=== PATIENT | female | born 1940 | race Caucasian/White ===

== ENCOUNTER 2019-07-02 13:54 | Emergency (ER) | payer MEDICARE, OTHER ==
[~2019-07-02] VITALS: Ht 162.6 cm; Wt 77.7 kg
[2019-07-02] MEDS ORDERED: RESTORIL30 M1 PO (14:36)
[2019-07-02] MEDS ORDERED: OMEPRAZOLE40 MG PO (14:37)
[2019-07-02] MEDS ORDERED: COLACE100 M1 PO (14:37)
[2019-07-02] MEDS ORDERED: CELEXA 20MG20 MG/TA1 PO (14:38)
[2019-07-02] MEDS ORDERED: MULTIVITAMIN1 SGL PO (14:38)
[2019-07-02] MEDS ORDERED: SIMVASTATIN20 M1 PO (14:38)
[2019-07-02] MEDS ORDERED: MIRALAX17 GM PO (14:39)
[2019-07-02] MEDS ORDERED: LEVO-T25 MCG PO (14:39)
[2019-07-02] MEDS ORDERED: SINGULAIR PO (14:39)
[2019-07-02] MEDS ORDERED: FLONASE ALLERG9.9 ML NAS (14:40)
[2019-07-02] MEDS ORDERED: LASIX20 M1 PO (14:40)
[2019-07-02] MEDS ORDERED: FEOSOL325 MG PO (14:41)
[2019-07-02] MEDS ORDERED: CYCLOBENZAPRINE10 M1 PO (14:41)
[2019-07-02] MEDS ORDERED: CARVEDILOL25 MG PO (14:41)
[2019-07-02] MEDS ORDERED: IPRATROPIUM BROM3 M1 IH (14:42)
[2019-07-02 16:25] VITALS: BP 128/71
== END 2019-07-02 16:25 | disposition home or self-care (01) ==
LOC: ED 13:54
DX: S01.01XA Laceration without foreign body of scalp, initial encounter (principal); S90.31XA Contusion of right foot, initial encounter; S40.011A Contusion of right shoulder, initial encounter; S80.11XA Contusion of right lower leg, initial encounter; Z79.51 Long term (current) use of inhaled steroids; W06.XXXA Fall from bed, initial encounter; Y92.009 Unspecified place in unspecified non-institutional (private) residence as the place of occurrence of the external cause

== ENCOUNTER → 2020-03-01 | Outpatient (CLI) | payer MEDICARE ==
[~2020-03-01] MED LIST: CARVEDILOL25 MG PO; CELEXA 20MG20 MG/TA1 PO; COLACE100 M1 PO; CYCLOBENZAPRINE10 M1 PO; FEOSOL325 MG PO; FLONASE ALLERG9.9 ML NAS; IPRATROPIUM BROM3 M1 IH; LASIX20 M1 PO; LEVO-T25 MCG PO; MIRALAX17 GM PO; MULTIVITAMIN1 SGL PO; OMEPRAZOLE40 MG PO; RESTORIL30 M1 PO; SIMVASTATIN20 M1 PO; SINGULAIR PO
== END ==
LOC: MAMMO 02-28 10:45
DX: Z12.31 Encounter for screening mammogram for malignant neoplasm of breast (principal); N63.20 Unspecified lump in the left breast, unspecified quadrant; Z95.0 Presence of cardiac pacemaker

== ENCOUNTER → 2020-03-08 | Outpatient (CLI) | payer MEDICARE | LOC: MAMMO 10:26 | DX: N64.9 Disorder of breast, unspecified (principal) ==

== ENCOUNTER → 2020-07-09 | Outpatient (CLI) | payer MEDICARE, OTHER | LOC: RAD 12:50 | DX: H53.9 Unspecified visual disturbance (principal) | CPT/HCPCS: Q9967 ==

== ENCOUNTER → 2021-01-18 | Outpatient (CLI) | payer MEDICARE, OTHER | LOC: RAD 10:22 | DX: H53.9 Unspecified visual disturbance (principal); H05.229 Edema of unspecified orbit; R22.0 Localized swelling, mass and lump, head ==

== ENCOUNTER 2023-03-05 09:52 | Inpatient (IN) | payer MEDICARE, OTHER ==
[~2023-03-05] VITALS: Ht 162.6 cm; Wt 75.0 kg
[~2023-03-05 09:52] MED LIST changes: +AZELASTINE137 MCG/Ac NS; +AZITHROMYCIN 250MGPK PO; +BENZONATATE100 M2 PO; +DULOXETINE30 MG PO; +MACROBID 100 M100 MG PO
[2023-03-05 10:51] LABS: BASO # 0.02 K/mm3 (0.02-0.10); EOS # 0.04 K/mm3 (0.04-0.40); EOS % 0.3 % (1.0-5.0); HEMATOCRIT 35.1 % (37.0-47.0); LYMPH# 1.93 K/mm3 (1.50-4.00); MEAN CELL VOLUME 93 fl (78-100); MEAN CORPUSCULAR HEMOGLOBIN 29 pg (27-31); MEAN CORPUSCULAR HGB CONC 31 g/dL (33-37); MEAN PLATELET VOLUME 9.7 fl (7.4-10.4); MONO # 0.57 K/mm3 (0.20-0.80); NEU # 12.18 K/mm3 (1.40-6.50); PLATELET COUNT 144 K/mm3 (130-400); RED BLOOD COUNT 3.78 M/mm3 (4.10-5.30); RED CELL DISTRIBUTION WIDTH 13.9 % (11.5-14.5); WHITE BLOOD COUNT 14.8 K/mm3 (4.8-10.8)
[2023-03-05 11:06] LABS: ALBUMIN 3.7 g/dL (3.4-4.8)
[2023-03-05 11:07] LABS: CALCIUM 9.9 mg/dL (8.3-10.5)
[2023-03-05 11:08] LABS: TOTAL PROTEIN 6.6 g/dL (6.2-8.1)
[2023-03-05 11:10] LABS: TOTAL BILIRUBIN 0.3 mg/dL (0.2-1.2)
[2023-03-05 14:34] LABS: PH-URINE 5.5 (5.0 - 8.0); URINE APPEARANCE CLOUDY (CLEAR); URINE BILIRUBIN NEGATIVE (NEGATIVE); URINE BLOOD 1+ (NEGATIVE); URINE COLOR YELLOW (YELLOW); URINE GLUCOSE NEGATIVE (NEGATIVE); URINE KETONE 1+ (NEGATIVE); URINE LEUKOCYTE ESTERASE 2+ (NEGATIVE); URINE NITRATE NEGATIVE (NEGATIVE); URINE PROTEIN(semi-quant) TRACE (NEGATIVE)
[2023-03-05 14:35] LABS: URINE WBC 16-30 /hpf (0-3)
[2023-03-05 17:07] VITALS: BP 146/78
[2023-03-05 21:42] VITALS: BP 122/73
[2023-03-06 02:45] VITALS: BP 139/70
[2023-03-06 05:28] VITALS: BP 114/67
[2023-03-06 09:04] LABS: BASO # 0.01 K/mm3 (0.02-0.10); EOS # 0.12 K/mm3 (0.04-0.40); EOS % 1.2 % (1.0-5.0); HEMATOCRIT 36.8 % (37.0-47.0); HEMOGLOBIN 11.1 g/dL (12.5-16.0); LYMPH# 1.52 K/mm3 (1.50-4.00); MEAN CELL VOLUME 96 fl (78-100); MEAN CORPUSCULAR HEMOGLOBIN 29 pg (27-31); MEAN CORPUSCULAR HGB CONC 30 g/dL (33-37); MEAN PLATELET VOLUME 9.9 fl (7.4-10.4); MONO # 0.51 K/mm3 (0.20-0.80); NEU # 7.42 K/mm3 (1.40-6.50); PLATELET COUNT 146 K/mm3 (130-400); RED BLOOD COUNT 3.82 M/mm3 (4.10-5.30); WHITE BLOOD COUNT 9.6 K/mm3 (4.8-10.8)
[2023-03-06 09:10] LABS: CALCIUM 9.6 mg/dL (8.3-10.5)
[2023-03-06 10:21] VITALS: BP 161/72
[2023-03-06 13:59] VITALS: BP 130/67
[2023-03-06] MEDS ORDERED: IPRATROPIUM BROM3 M1 IH (14:26)
[2023-03-06] MEDS ORDERED: BENADRYL PO (14:27)
[2023-03-06] MEDS ORDERED: COLACE100 M1 PO (14:28)
[2023-03-06] MEDS ORDERED: FERROUS SULFAT325 M4 PO (14:29)
[2023-03-06] MEDS ORDERED: CYMBALTA30 M1 PO (14:29)
[2023-03-06] MEDS ORDERED: SINGULAIR PO (14:30)
[2023-03-06] MEDS ORDERED: SYNTHROID25 MCG PO (14:30)
[2023-03-06] MEDS ORDERED: OMEPRAZOLE40 MG PO ×2 (14:31)
[2023-03-06] MEDS ORDERED: MIRALAX17 GM PO (14:31)
[2023-03-06] MEDS ORDERED: POTASSIUM CHLO10 ME7 PO (14:32)
[2023-03-06 18:06] VITALS: BP 128/71
[2023-03-06 22:30] VITALS: BP 129/75
[2023-03-07 02:17] VITALS: BP 143/72
[2023-03-07 05:54] VITALS: BP 137/72
[2023-03-07 06:58] LABS: CALCIUM 9.2 mg/dL (8.3-10.5)
[2023-03-07 09:57] VITALS: BP 128/68
[2023-03-07 13:26] VITALS: BP 136/64
[2023-03-07 17:11] VITALS: BP 138/70
[2023-03-07 21:47] VITALS: BP 129/67
[2023-03-08 01:45] VITALS: BP 149/70
[2023-03-08 05:34] VITALS: BP 138/70
[2023-03-08 07:05] LABS: CALCIUM 8.7 mg/dL (8.3-10.5)
[2023-03-08 09:57] VITALS: BP 107/51
[2023-03-08 14:05] VITALS: BP 124/63
[2023-03-08 17:09] VITALS: BP 113/63
[2023-03-08 21:37] VITALS: BP 116/59
[2023-03-09 01:44] VITALS: BP 133/72
[2023-03-09 06:04] VITALS: BP 153/75
[2023-03-09 09:09] VITALS: BP 120/64
[2023-03-09 09:10] LABS: CALCIUM 8.7 mg/dL (8.3-10.5)
[2023-03-09] MEDS ORDERED: MACROBID 100 M100 MG PO (12:28)
[2023-03-09 13:42] VITALS: BP 118/69
== END 2023-03-09 13:43 | disposition home or self-care (01) | DRG 690 ==
LOC: ED 09:52 → MED/SURG 15:08
PROVIDERS: Physician Assistant; ADMIT Family Medicine
DX: N39.0 Urinary tract infection, site not specified (principal); I13.0 Hypertensive heart and chronic kidney disease with heart failure and stage 1 through stage 4 chronic kidney disease, or unspecified chronic kidney disease; I50.9 Heart failure, unspecified; N18.9 Chronic kidney disease, unspecified; A08.4 Viral intestinal infection, unspecified; K21.9 Gastro-esophageal reflux disease without esophagitis; E78.5 Hyperlipidemia, unspecified; J30.2 Other seasonal allergic rhinitis; B96.89 Other specified bacterial agents as the cause of diseases classified elsewhere; R29.6 Repeated falls; Z59.9 Problem related to housing and economic circumstances, unspecified; Z88.2 Allergy status to sulfonamides; Z88.0 Allergy status to penicillin
CPT/HCPCS: J0696; J7030

== ENCOUNTER → 2023-04-10 | Outpatient (CLI) | payer MEDICARE, OTHER ==
[~2023-04-10] MED LIST changes: +BENADRYL PO; +CYMBALTA30 M1 PO; +FERROUS SULFAT325 M4 PO; +POTASSIUM CHLO10 ME7 PO; +SYNTHROID25 MCG PO
== END ==
LOC: RAD 11:44
DX: M25.531 Pain in right wrist (principal)

== ENCOUNTER 2023-08-23 05:29 | Emergency (ER) | payer MEDICARE, OTHER ==
[~2023-08-23] VITALS: Ht 162.6 cm; Wt 75.9 kg
[2023-08-23 08:49] VITALS: BP 151/77
== END 2023-08-23 08:52 | disposition home or self-care (01) ==
LOC: ED 05:29
DX: S93.401A Sprain of unspecified ligament of right ankle, initial encounter (principal); Z91.040 Latex allergy status; W06.XXXA Fall from bed, initial encounter

== ENCOUNTER 2023-10-27 19:52 | Emergency (ER) | payer MEDICARE, OTHER ==
[~2023-10-27] VITALS: Ht 162.6 cm; Wt 77.7 kg
[2023-10-27 20:26] LABS: BASO # 0.03 K/mm3 (0.02-0.10); EOS # 0.22 K/mm3 (0.04-0.40); EOS % 2.9 % (1.0-5.0); HEMATOCRIT 33.6 % (37.0-47.0); HEMOGLOBIN 10.3 g/dL (12.5-16.0); LYMPH# 2.18 K/mm3 (1.50-4.00); MEAN CELL VOLUME 94 fl (78-100); MEAN CORPUSCULAR HEMOGLOBIN 29 pg (27-31); MEAN CORPUSCULAR HGB CONC 31 g/dL (33-37); MEAN PLATELET VOLUME 10.1 fl (7.4-10.4); MONO # 0.45 K/mm3 (0.20-0.80); NEU # 4.77 K/mm3 (1.40-6.50); PLATELET COUNT 190 K/mm3 (130-400); RED BLOOD COUNT 3.56 M/mm3 (4.10-5.30); RED CELL DISTRIBUTION WIDTH 14.2 % (11.5-14.5); WHITE BLOOD COUNT 7.7 K/mm3 (4.8-10.8)
[2023-10-27 20:27] LABS: ALBUMIN 3.6 g/dL (3.4-4.8)
[2023-10-27 20:28] LABS: SODIUM 140 mmol/L (136-145)
[2023-10-27 20:29] LABS: CALCIUM 10.3 mg/dL (8.3-10.5)
[2023-10-27 20:30] LABS: GLUCOSE 120 mg/dL (65-105); TOTAL PROTEIN 6.7 g/dL (6.2-8.1)
[2023-10-27 20:31] LABS: CARBON DIOXIDE 29 mmol/L (23-31)
[2023-10-27 20:32] LABS: TOTAL BILIRUBIN 0.3 mg/dL (0.2-1.2)
[2023-10-27 20:35] LABS: AST-SGOT 19 U/L (5-34)
[2023-10-27 20:37] LABS: ALT/SGPT 10 U/L (0-55)
[2023-10-27 20:42] LABS: TROPONIN-I < 0.030 ng/mL (0.00-0.033)
[2023-10-27 20:53] LABS: URINE APPEARANCE SLIGHTLY CLOUDY (CLEAR); URINE BILIRUBIN NEGATIVE (NEGATIVE); URINE BLOOD TRACE-INTACT (NEGATIVE); URINE COLOR YELLOW (YELLOW); URINE GLUCOSE NEGATIVE (NEGATIVE); URINE KETONE NEGATIVE (NEGATIVE); URINE LEUKOCYTE ESTERASE 2+ (NEGATIVE); URINE NITRATE NEGATIVE (NEGATIVE); URINE PROTEIN(semi-quant) TRACE (NEGATIVE)
[2023-10-27 21:10] LABS: URINE WBC 31-50 /hpf (0-3)
[2023-10-27] MEDS ORDERED: DIFLUCAN100 M1 PO (21:33)
[2023-10-27] MEDS ORDERED: MACROBID 100 M100 MG PO (21:33)
[2023-10-27] MEDS ORDERED: cefTRIAXone 1 G in Water For Injection,Sterile 10 ML IV ONE (21:45)
[2023-10-27 22:57] VITALS: BP 129/59
== END 2023-10-27 23:01 | disposition home or self-care (01) ==
LOC: ED 19:52
PROVIDERS: Family Medicine
DX: N39.0 Urinary tract infection, site not specified (principal); J44.9 Chronic obstructive pulmonary disease, unspecified; Z91.040 Latex allergy status; Z99.81 Dependence on supplemental oxygen; W07.XXXA Fall from chair, initial encounter
CPT/HCPCS: J0696

== ENCOUNTER 2023-12-09 13:13 | Emergency (ER) | payer MEDICARE, OTHER ==
[~2023-12-09] VITALS: Ht 162.6 cm; Wt 72.4 kg
[~2023-12-09 13:13] MED LIST changes: +DIFLUCAN100 M1 PO
[2023-12-09 14:00] LABS: BASO # 0.02 K/mm3 (0.02-0.10); EOS # 0.18 K/mm3 (0.04-0.40); HEMATOCRIT 39.4 % (37.0-47.0); LYMPH# 2.31 K/mm3 (1.50-4.00); MEAN CELL VOLUME 94 fl (78-100); MEAN CORPUSCULAR HEMOGLOBIN 29 pg (27-31); MEAN CORPUSCULAR HGB CONC 31 g/dL (33-37); MEAN PLATELET VOLUME 9.8 fl (7.4-10.4); MONO # 0.46 K/mm3 (0.20-0.80); PLATELET COUNT 170 K/mm3 (130-400); RED CELL DISTRIBUTION WIDTH 14.2 % (11.5-14.5); WHITE BLOOD COUNT 8.8 K/mm3 (4.8-10.8)
[2023-12-09 14:04] LABS: ALBUMIN 3.9 g/dL (3.4-4.8)
[2023-12-09 14:05] LABS: SODIUM 140 mmol/L (136-145)
[2023-12-09 14:06] LABS: CALCIUM 10.8 mg/dL (8.3-10.5)
[2023-12-09 14:07] LABS: GLUCOSE 111 mg/dL (65-105); TOTAL PROTEIN 7.3 g/dL (6.2-8.1)
[2023-12-09 14:08] LABS: CARBON DIOXIDE 28 mmol/L (23-31)
[2023-12-09 14:09] LABS: TOTAL BILIRUBIN 0.4 mg/dL (0.2-1.2)
[2023-12-09 14:12] LABS: AST-SGOT 21 U/L (5-34)
[2023-12-09 14:14] LABS: ALT/SGPT 17 U/L (0-55)
[2023-12-09 14:17] LABS: URINE APPEARANCE SLIGHTLY CLOUDY (CLEAR); URINE BILIRUBIN NEGATIVE (NEGATIVE); URINE BLOOD TRACE-INTACT (NEGATIVE); URINE COLOR YELLOW (YELLOW); URINE GLUCOSE NEGATIVE (NEGATIVE); URINE LEUKOCYTE ESTERASE 2+ (NEGATIVE); URINE NITRATE NEGATIVE (NEGATIVE); URINE PROTEIN(semi-quant) TRACE (NEGATIVE)
[2023-12-09 14:18] LABS: URINE KETONE TRACE (NEGATIVE); URINE WBC >50 /hpf (0-3)
[2023-12-09 14:20] LABS: TROPONIN-I < 0.030 ng/mL (0.00-0.033)
[2023-12-09 14:26] LABS: PROTHROMBIN TIME 9.7 SECONDS (9.0-12.0)
[2023-12-09] MEDS ORDERED: cefTRIAXone 1 G in Water For Injection,Sterile 10 ML IV ONE (14:45)
[2023-12-09] MEDS ORDERED: CEPHALEXIN500 M1 PO (15:02)
[2023-12-09 15:40] VITALS: BP 124/66
[2023-12-20] MEDS ORDERED: [UNRECOGNIZED DRUG - OTHER] TOP (14:41)
[2023-12-20] MEDS ORDERED: MICONAZOLE TOP (14:41)
[2023-12-20] MEDS ORDERED: DIFLUCAN100 M1 PO (14:44)
== END 2023-12-09 15:40 | disposition home or self-care (01) ==
LOC: ED 13:13
PROVIDERS: Family Medicine
DX: N39.0 Urinary tract infection, site not specified (principal); J44.9 Chronic obstructive pulmonary disease, unspecified; R00.0 Tachycardia, unspecified; Z99.81 Dependence on supplemental oxygen; Z91.040 Latex allergy status; Z88.2 Allergy status to sulfonamides; Z90.49 Acquired absence of other specified parts of digestive tract; Z90.710 Acquired absence of both cervix and uterus
CPT/HCPCS: J0696

== ENCOUNTER 2024-01-22 18:33 | Emergency (ER) | payer MEDICARE, OTHER ==
[~2024-01-22] VITALS: Ht 162.6 cm; Wt 77.0 kg
[~2024-01-22 18:33] MED LIST changes: +CEPHALEXIN500 M1 PO; +MICONAZOLE TOP; +[UNRECOGNIZED DRUG - OTHER] TOP
[2024-01-22] MEDS ORDERED: Ondansetron 4 MG/2 ML VIAL IV ONE (18:45)
[2024-01-22 18:48] LABS: BASO # 0.05 K/mm3 (0.02-0.10); EOS # 0.24 K/mm3 (0.04-0.40); EOS % 2.6 % (1.0-5.0); HEMATOCRIT 36.2 % (37.0-47.0); LYMPH# 2.56 K/mm3 (1.50-4.00); MEAN CELL VOLUME 96 fl (78-100); MEAN CORPUSCULAR HEMOGLOBIN 29 pg (27-31); MEAN CORPUSCULAR HGB CONC 30 g/dL (33-37); MEAN PLATELET VOLUME 9.7 fl (7.4-10.4); MONO # 0.51 K/mm3 (0.20-0.80); NEU # 5.96 K/mm3 (1.40-6.50); PLATELET COUNT 203 K/mm3 (130-400); RED BLOOD COUNT 3.77 M/mm3 (4.10-5.30); RED CELL DISTRIBUTION WIDTH 15.3 % (11.5-14.5); WHITE BLOOD COUNT 9.3 K/mm3 (4.8-10.8)
[2024-01-22 18:55] LABS: ALBUMIN 3.8 g/dL (3.4-4.8)
[2024-01-22 18:57] LABS: CALCIUM 10.9 mg/dL (8.3-10.5)
[2024-01-22 18:58] LABS: TOTAL PROTEIN 6.9 g/dL (6.2-8.1)
[2024-01-22 19:00] LABS: TOTAL BILIRUBIN 0.4 mg/dL (0.2-1.2)
[2024-01-22 19:29] LABS: URINE APPEARANCE CLOUDY (CLEAR); URINE BILIRUBIN NEGATIVE (NEGATIVE); URINE BLOOD NEGATIVE (NEGATIVE); URINE COLOR YELLOW (YELLOW); URINE GLUCOSE NEGATIVE (NEGATIVE); URINE KETONE NEGATIVE (NEGATIVE); URINE LEUKOCYTE ESTERASE 2+ (NEGATIVE); URINE NITRATE NEGATIVE (NEGATIVE); URINE PROTEIN(semi-quant) TRACE (NEGATIVE)
[2024-01-22 19:34] LABS: URINE WBC 16-30 /hpf (0-3)
[2024-01-22] MEDS ORDERED: ZOFRAN ODT4 MG PO (20:04)
[2024-01-22 21:15] VITALS: BP 133/76
== END 2024-01-22 21:22 | disposition home or self-care (01) ==
LOC: ED 18:33
PROVIDERS: Family Medicine
DX: R11.2 Nausea with vomiting, unspecified (principal); J44.9 Chronic obstructive pulmonary disease, unspecified; Z99.81 Dependence on supplemental oxygen; Z91.040 Latex allergy status
CPT/HCPCS: J2405

== ENCOUNTER 2024-01-24 09:36 | Emergency (ER) | payer MEDICARE, OTHER ==
[~2024-01-24] VITALS: Ht 162.6 cm; Wt 77.0 kg
[~2024-01-24 09:36] MED LIST changes: +ZOFRAN ODT4 MG PO
[2024-01-24 10:33] LABS: URINE APPEARANCE SLIGHTLY CLOUDY (CLEAR); URINE COLOR YELLOW (YELLOW)
[2024-01-24 10:34] LABS: URINE BILIRUBIN NEGATIVE (NEGATIVE); URINE BLOOD TRACE-INTACT (NEGATIVE); URINE GLUCOSE NEGATIVE (NEGATIVE); URINE KETONE NEGATIVE (NEGATIVE); URINE LEUKOCYTE ESTERASE 1+ (NEGATIVE); URINE NITRATE NEGATIVE (NEGATIVE); URINE PROTEIN(semi-quant) 1+ (NEGATIVE); URINE WBC 31-50 /hpf (0-3)
[2024-01-24] MEDS ORDERED: Nitrofurantoin (Mono/Macro) 100 MG CAPSULE PO ONE ×2 (10:45→11:00)
[2024-01-24] MEDS ORDERED: MACROBID 100 M100 MG PO (10:53)
[2024-01-24] MEDS ORDERED: PHENERGAN 25 TA25 MG PO (10:53)
[2024-01-24 11:43] VITALS: BP 128/65
== END 2024-01-24 11:43 | disposition home or self-care (01) ==
LOC: ED 09:36
PROVIDERS: Physician Assistant
DX: N39.0 Urinary tract infection, site not specified (principal); R11.0 Nausea; R53.81 Other malaise; Z91.040 Latex allergy status

== ENCOUNTER 2024-03-15 17:16 | Emergency (ER) | payer MEDICARE, OTHER ==
[~2024-03-15] VITALS: Ht 162.6 cm; Wt 72.5 kg
[~2024-03-15 17:16] MED LIST changes: +PHENERGAN 25 TA25 MG PO
[2024-03-15] MEDS ORDERED: Ondansetron 4 MG/2 ML VIAL IV ONE (17:30)
[2024-03-15] MEDS ORDERED: NS 500 ML IV SCH (17:45)
[2024-03-15 17:52] LABS: BASO # 0.04 K/mm3 (0.02-0.10); EOS % 3.3 % (1.0-5.0); HEMATOCRIT 35.8 % (37.0-47.0); HEMOGLOBIN 10.9 g/dL (12.5-16.0); LYMPH# 2.64 K/mm3 (1.50-4.00); MEAN CELL VOLUME 95 fl (78-100); MEAN CORPUSCULAR HEMOGLOBIN 29 pg (27-31); MEAN CORPUSCULAR HGB CONC 30 g/dL (33-37); MEAN PLATELET VOLUME 10.1 fl (7.4-10.4); MONO # 0.48 K/mm3 (0.20-0.80); NEU # 5.69 K/mm3 (1.40-6.50); PLATELET COUNT 204 K/mm3 (130-400); RED BLOOD COUNT 3.76 M/mm3 (4.10-5.30); WHITE BLOOD COUNT 9.2 K/mm3 (4.8-10.8)
[2024-03-15 17:59] LABS: ALBUMIN 3.7 g/dL (3.4-4.8)
[2024-03-15 18:00] LABS: CALCIUM 10.1 mg/dL (8.3-10.5)
[2024-03-15 18:01] LABS: TOTAL PROTEIN 7.2 g/dL (6.2-8.1)
[2024-03-15 18:03] LABS: TOTAL BILIRUBIN 0.3 mg/dL (0.2-1.2)
[2024-03-15 18:17] LABS: URINE APPEARANCE SLIGHTLY CLOUDY (CLEAR); URINE BILIRUBIN NEGATIVE (NEGATIVE); URINE BLOOD 1+ (NEGATIVE); URINE COLOR YELLOW (YELLOW); URINE GLUCOSE NEGATIVE (NEGATIVE); URINE KETONE NEGATIVE (NEGATIVE); URINE LEUKOCYTE ESTERASE 3+ (NEGATIVE); URINE NITRATE NEGATIVE (NEGATIVE); URINE PROTEIN(semi-quant) TRACE (NEGATIVE); URINE WBC >50 /hpf (0-3)
[2024-03-15] MEDS ORDERED: cefTRIAXone 1 G in Water For Injection,Sterile 10 ML IV ONE (18:30)
[2024-03-15] MEDS ORDERED: ONDANSETRON HYDR4 MG PO (18:34)
[2024-03-15] MEDS ORDERED: CEFDINIR300 MG PO (18:34)
[2024-03-15 20:37] VITALS: BP 139/80
== END 2024-03-15 20:37 | disposition home or self-care (01) ==
LOC: ED 17:16
PROVIDERS: Physician Assistant
DX: N39.0 Urinary tract infection, site not specified (principal); R11.0 Nausea; Z91.040 Latex allergy status
CPT/HCPCS: J0696; J2405; J7040

== ENCOUNTER 2024-04-06 12:23 | Observation (INO) | payer MEDICARE, OTHER ==
[~2024-04-06] VITALS: Ht 162.6 cm; Wt 70.7 kg
[~2024-04-06 12:23] MED LIST changes: +CEFDINIR300 MG PO; +ONDANSETRON HYDR4 MG PO
[2024-04-06] MEDS ORDERED: NS 1,000 ML IV ONE (12:45)
[2024-04-06 13:01] LABS: BASO # 0.03 K/mm3 (0.02-0.10); EOS # 0.21 K/mm3 (0.04-0.40); EOS % 2.2 % (1.0-5.0); HEMATOCRIT 42.7 % (37.0-47.0); HEMOGLOBIN 12.9 g/dL (12.5-16.0); LYMPH# 1.96 K/mm3 (1.50-4.00); MEAN CELL VOLUME 95 fl (78-100); MEAN CORPUSCULAR HEMOGLOBIN 29 pg (27-31); MEAN CORPUSCULAR HGB CONC 30 g/dL (33-37); MONO # 0.46 K/mm3 (0.20-0.80); NEU # 7.06 K/mm3 (1.40-6.50); PLATELET COUNT 153 K/mm3 (130-400); RED BLOOD COUNT 4.51 M/mm3 (4.10-5.30); RED CELL DISTRIBUTION WIDTH 14.3 % (11.5-14.5); WHITE BLOOD COUNT 9.7 K/mm3 (4.8-10.8)
[2024-04-06 13:23] LABS: ALBUMIN 3.9 g/dL (3.4-4.8)
[2024-04-06 13:24] LABS: CALCIUM 10.8 mg/dL (8.3-10.5)
[2024-04-06 13:26] LABS: TOTAL PROTEIN 7.7 g/dL (6.2-8.1)
[2024-04-06 13:27] LABS: TOTAL BILIRUBIN 0.3 mg/dL (0.2-1.2)
[2024-04-06 13:54] LABS: URINE APPEARANCE SLIGHTLY CLOUDY (CLEAR); URINE COLOR YELLOW (YELLOW)
[2024-04-06 13:55] LABS: URINE BILIRUBIN 1+ (NEGATIVE); URINE BLOOD TRACE-INTACT (NEGATIVE); URINE GLUCOSE NEGATIVE (NEGATIVE); URINE KETONE NEGATIVE (NEGATIVE); URINE LEUKOCYTE ESTERASE 3+ (NEGATIVE); URINE MUCUS PRESENT (NOT PRESENT); URINE NITRATE NEGATIVE (NEGATIVE); URINE PROTEIN(semi-quant) 1+ (NEGATIVE); URINE WBC >50 /hpf (0-3)
[2024-04-06] MEDS ORDERED: Iodixanol-320 100 ML BOTTLE IV ONE (15:05)
[2024-04-06] MEDS ORDERED: NS 100 ML IV ONE (15:06)
[2024-04-06] MEDS ORDERED: Sodium Phosphates Rectal Enema 133 ML BOTTLE RC ONE (16:00)
[2024-04-06] MEDS ORDERED: cefTRIAXone 1 G in Water For Injection,Sterile 10 ML IV ONE (16:00)
[2024-04-06] MEDS ORDERED: Miconazole 2% Topical Powder BOTTLE TP SCH (18:22)
[2024-04-06 19:00] VITALS: BP 117/74
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
[2024-04-06] MEDS ORDERED: DULOXETINE30 MG PO (19:09)
[2024-04-06] MEDS ORDERED: MACROBID 1100 MG/CAP PO (19:12)
--- NOTE | 2024-04-06 19:20 | NUR ---
Report received from Edgar MATHEWS. Patient sitting up in recliner working on menus. Oxygen in place at 4L/NC. Alert, mostly oriented, did not know what Month it was. Knew year, place etc.. States has pain all over 09/25. States she always has pain. "I have fibromyalga and Lupus.". TELE in place, applied at 191. Denies SOA, reports occasional dry NPC. Lungs CTA. Yeasty reddness noted under bilaterl breast. L groin area. Nystatin powder applied. INT to LFA, bloody on dressing, flushed easily with NS good blood return. +1 edema to BLE. Patient denies wants or needs at this time. Chair alarm on. Call light in reach.
--- NOTE | 2024-04-06 19:40 | NUR ---
New INT placed to LFA #22 by Norma Monroy RN. Old INT pulled out with patient movement after attempt from this nurse to clean area and apply new dressing. Tolerated well.
--- NOTE | 2024-04-06 20:50 | NUR ---
Incontinent of B&B. Assisted to BSC by 2 staff and expelled estimated 400 ML of liquid stool mixed with urine. Incontinent cares provided. Nystatin powder applied. No open areas noted. New brief applied and assisted to bed. Bed alarm on. Call light in reach. BS 138. HS medications taken whole without difficulty. Denies wants or needs. "I just want to go to sleep".
[2024-04-06] MEDS ORDERED: Carvedilol 6.25 MG TAB PO SCH (21:00)
[2024-04-06] MEDS ORDERED: Temazepam 15 MG CAP PO SCH (21:00)
[2024-04-06] MEDS ORDERED: Furosemide 20 MG TAB PO SCH (21:00)
[2024-04-06] MEDS ORDERED: diphenhydrAMINE 25 MG CAP PO PRN (22:00)
[2024-04-06] MEDS ORDERED: NS 1,000 ML IV SCH (22:30)
[2024-04-06 23:01] VITALS: BP 127/74
--- NOTE | 2024-04-07 01:41 | NUR ---
Resting quietly with eyes closed, respirations even and non-labored. Oxygen in place at 4L/NC. IVF infusing NS at 75 ML/HR. Staff into check for incontinency.
--- NOTE | 2024-04-07 02:08 | NUR ---
Calls to go to BR. Brief dry with no urine or feces noted. Up to BSC with 2 assist. Voids 400 ML of dark yellow urine. No bowel movement. Assisted back to bed. Positioned for comfort. Bed alarm on. Call light in reach.
[2024-04-07 02:26] VITALS: BP 117/71
--- NOTE | 2024-04-07 02:50 | NUR ---
Daughter Sade calls to check on her Mother. Updated on status and POC.
--- NOTE | 2024-04-07 04:06 | NUR ---
Rests with eyes closed. Respirations even and non-labored. HR 73 NSR per monitor. No signs of pain/distress. IVF infusing NS at 75 ML/HR.
--- NOTE | 2024-04-07 05:04 | NUR ---
Calls to use BSC. Up with 2:1 assist. Usually 1 assist one to wipe and patient feels weak. Brief dry and clean. AM medication taken whole without difficulty. Advised patient daughter called last night to check on her.
[2024-04-07 07:00] VITALS: BP 124/71
--- NOTE | 2024-04-07 07:20 | NUR ---
Report to Debar MATHEWS.
[2024-04-07 07:36] LABS: BASO # 0.03 K/mm3 (0.02-0.10); EOS # 0.28 K/mm3 (0.04-0.40); EOS % 3.1 % (1.0-5.0); HEMATOCRIT 34.6 % (37.0-47.0); LYMPH# 2.17 K/mm3 (1.50-4.00); MEAN CELL VOLUME 96 fl (78-100); MEAN CORPUSCULAR HEMOGLOBIN 29 pg (27-31); MEAN CORPUSCULAR HGB CONC 30 g/dL (33-37); MEAN PLATELET VOLUME 10.8 fl (7.4-10.4); MONO # 0.43 K/mm3 (0.20-0.80); NEU # 6.03 K/mm3 (1.40-6.50); PLATELET COUNT 137 K/mm3 (130-400); RED BLOOD COUNT 3.61 M/mm3 (4.10-5.30); RED CELL DISTRIBUTION WIDTH 14.6 % (11.5-14.5)
[2024-04-07 07:44] LABS: ALBUMIN 3.3 g/dL (3.4-4.8)
[2024-04-07 07:46] LABS: CALCIUM 9.7 mg/dL (8.3-10.5)
[2024-04-07 07:47] LABS: TOTAL PROTEIN 6.4 g/dL (6.2-8.1)
[2024-04-07 07:49] LABS: TOTAL BILIRUBIN 0.3 mg/dL (0.2-1.2)
[2024-04-07 07:56] LABS: HEMOGLOBIN 10.5 g/dL (12.5-16.0)
[2024-04-07] MEDS ORDERED: Ferrous Sulfate 325 MG TAB PO SCH (08:00)
[2024-04-07] MEDS ORDERED: Docusate Sodium 100 MG CAP PO SCH (09:00)
[2024-04-07] MEDS ORDERED: cefTRIAXone 1 G in Water For Injection,Sterile 10 ML IV SCH (09:00)
[2024-04-07 11:16] VITALS: BP 146/64
[2024-04-07 15:22] VITALS: BP 102/57
--- NOTE | 2024-04-07 16:30 | NUR ---
Patient alert and oriented. Sitting up in recliner. Denies N/V. Had multiple liquid stools today. Reports "gas pains" earlier today that has resolved. NS infusing throught IV to left forearm at ordered rate. Oxygen at 4 liters via nasal cannula. Denies needs or questions.
--- NOTE | 2024-04-07 18:16 | NUR ---
Report received from Debra. Patient sitting up in bed filling out her menu's for tomorrow. A/O x4. Oxygen in place at 4L/NC per home routine. IVF infusing NS at 75 ML/HR. Site patent to LFA. States "no more then usual when asked about pain". Denies wants or needs. Chair alarm on, call light in reach.
[2024-04-07 20:02] VITALS: BP 103/59
--- NOTE | 2024-04-07 20:02 | NUR ---
HEALTH PROMOTION SPECIALIST in to obtain V/S, noted IV site infiltrated to LFA. IVF stopped. Callee RN in to start new IV. Daughter La calls and informs this nurse that patient is suppose to be taking mucinex, not quite sure of dosage but thinks it is 1200 MG. Taylor Appiah APRN notified.
[2024-04-07 22:52] VITALS: BP 136/66
--- NOTE | 2024-04-08 03:15 | NUR ---
New bag of IVF hung. Continues to run at 75 ML/HR. Site patent to RFA. Resting well. Has been continent of B&B this shift. No BM. Passing large amount of gas while on toilet.
[2024-04-08 03:22] VITALS: BP 115/70
--- NOTE | 2024-04-08 05:56 | NUR ---
Rested well per report. Continent of urine. No BM this shift. Passing gas. IVF continue at 75 ML/HR. AM medication taken whole without difficulty. Denies wants or needs. Bed alarm on. Call light in reach.
--- NOTE | 2024-04-08 06:57 | NUR ---
Report to Victorina MATHEWS
[2024-04-08 07:10] VITALS: BP 146/70
--- NOTE | 2024-04-08 07:50 | NUR ---
PT. UP IN CHAIR THIS AM. O2 ON AT 4L PER HER HOME REGIMEN. DENIES ANY NEEDS OR CONCERNS. STATES THAT SHE WOULD LIKE TO GO HOME TODAY.
[2024-04-08 09:12] LABS: BASO # 0.03 K/mm3 (0.02-0.10); EOS # 0.19 K/mm3 (0.04-0.40); HEMATOCRIT 35.5 % (37.0-47.0); HEMOGLOBIN 10.6 g/dL (12.5-16.0); MEAN CELL VOLUME 98 fl (78-100); MEAN CORPUSCULAR HEMOGLOBIN 29 pg (27-31); MEAN CORPUSCULAR HGB CONC 30 g/dL (33-37); MEAN PLATELET VOLUME 9.9 fl (7.4-10.4); MONO # 0.36 K/mm3 (0.20-0.80); NEU # 3.82 K/mm3 (1.40-6.50); PLATELET COUNT 148 K/mm3 (130-400); RED BLOOD COUNT 3.63 M/mm3 (4.10-5.30); RED CELL DISTRIBUTION WIDTH 14.2 % (11.5-14.5); WHITE BLOOD COUNT 6.3 K/mm3 (4.8-10.8)
[2024-04-08 09:21] LABS: ALBUMIN 3.5 g/dL (3.4-4.8)
[2024-04-08 09:22] LABS: CALCIUM 9.5 mg/dL (8.3-10.5)
[2024-04-08 09:24] LABS: TOTAL PROTEIN 6.7 g/dL (6.2-8.1)
[2024-04-08 09:25] LABS: TOTAL BILIRUBIN 0.2 mg/dL (0.2-1.2)
[2024-04-08 10:47] VITALS: BP 129/73
--- NOTE | 2024-04-08 11:28 | NUR ---
ST has finished session with patient and this nurse enters rooms and introduces self. Pt is immediatley apprehensive. Stating "what are your intentions? are you here to put me an assisted living? Im not going to assisted living" Pt continues requesting to go home. When asked about her receiving any assistance in the home she replies she has her daughter she can call when needed. Pt does not recall last fall or how she got to the hospital or how EMS was involved. "my daughter probably called them" Pt refuses any discussion of help in the home or placement. "youll have to talk to my daughter about it" Call to La pt daughter. She reports she is DPOA. No paperwork on file and asked her to bring in. She reports she cannot come today but will on Thursday. Discussed patients living situation is not well. She reports patient is not safe to return. States "house needs cleaned and pt has a new fridge being delivered tomorrow." She also reports she feels she cannot assist mother as her health is not well. She also thinks placement for pt would be ideal but knows this is upsetting to her mother and not her mothers wishes. Reports Santana at [email or web address] has been helping her with getting assistance to clean the home and hopes to get this done soon. This nurse has also received call from Gabriela with APS who reports she has been working with daughter and Santana and confirms they are trying to get help in to clean the home. Unsure when or how this will happen yet. Gabriela reports the living conditions are bad and she would not recommend patient return until cleaned up
[2024-04-08 15:08] VITALS: BP 117/66
--- NOTE | 2024-04-08 17:05 | NUR ---
PT. STATUS CHANGED TO ACUTE PER PROVIDER ORDER.
[2024-04-14] MEDS ORDERED: CYCLOBENZ5 MG PO (08:57)
[2024-04-14] MEDS ORDERED: BENADRYL PO (08:58)
[2024-04-14] MEDS ORDERED: RESTORIL30 M1 PO (08:58)
[2024-04-14] MEDS ORDERED: TEMAZEPAM PO (15:19)
== END 2024-04-08 17:05 | disposition short-term general hospital (02) ==
LOC: ED 12:23 → MED/SURG 15:51
PROVIDERS: ADMIT Family Medicine
DX: N39.0 Urinary tract infection, site not specified (principal); K56.41 Fecal impaction; E83.52 Hypercalcemia; I13.0 Hypertensive heart and chronic kidney disease with heart failure and stage 1 through stage 4 chronic kidney disease, or unspecified chronic kidney disease; I50.40 Unspecified combined systolic (congestive) and diastolic (congestive) heart failure; N18.32 Chronic kidney disease, stage 3b; L30.8 Other specified dermatitis; E11.22 Type 2 diabetes mellitus with diabetic chronic kidney disease; B37.89 Other sites of candidiasis; R19.7 Diarrhea, unspecified; J44.1 Chronic obstructive pulmonary disease with (acute) exacerbation; R53.81 Other malaise; Z59.19 Other inadequate housing; Z99.81 Dependence on supplemental oxygen
CPT/HCPCS: G0378; J0696; J7030; Q9967

== ENCOUNTER 2024-04-08 17:05 | Inpatient (IN) | payer MEDICARE, OTHER ==
[~2024-04-08] VITALS: Ht 162.6 cm; Wt 68.8 kg
[~2024-04-08 17:05] MED LIST changes: +MACROBID 1100 MG/CAP PO
[2024-04-08] MEDS ORDERED: Polyethylene Glycol 3350 Powder 17 GM PACKET PO PRN (17:45)
[2024-04-08] MEDS ORDERED: Acetaminophen 325 MG TAB PO PRN (17:45)
[2024-04-08] MEDS ORDERED: Dextrose 50% Water 25 GM/50 ML SYRINGE IV PRN (18:15)
[2024-04-08] MEDS ORDERED: Dextrose (Glucose) 15 GM (4 x 3.75 GM) Chewable TAB PACK PO PRN (18:15)
[2024-04-08] MEDS ORDERED: Glucagon 1 MG VIAL IM PRN (18:15)
[2024-04-08] MEDS ORDERED: cefTRIAXone 1 G in Water For Injection,Sterile 10 ML IV SCH (18:30)
[2024-04-08] MEDS ORDERED: NS 1,000 ML IV SCH (19:15)
[2024-04-08 19:25] VITALS: BP 118/72
[2024-04-08 19:26] VITALS: BP 118/72
--- NOTE | 2024-04-08 20:22 | NUR ---
When nurse enteres pt room to start IV fluids and preform nursing assessment, pt was sitting in recliner with the TV on at a loud volume. Pt asked what the IV fluids were for and nurse attemptes to explaine to pt what it was for and why they were ordered but the pt did not understand anything the nurse was trying to tell her. Pt is yelling at nurse that no body asked her what she wanted. Nurse attempts to explaine to pt but the pt is so upset she is not listening. Nurse leaves room to let pt calm herself down. call light is in the reach of the pt.
--- NOTE | 2024-04-08 20:26 | NUR ---
Received a call from the pt daughter with questions fromom the conversation she just had with her mother. DAughter states cata ther mother had called her and was not making since. Explained to the daughter that the pt was upset because the providers have started IV fluids without talking to her. Explained to the daughter that the IV fluids were started to help correct some of her renal functions. DAughter states understanding and appoligies for her mothers behavior. Daughter was reassured that everthing would be fine and for her to call if she had any further questions if they arise.
[2024-04-08] MEDS ORDERED: Insulin Lispro (HumaLOG) SQ SCH (21:00)
[2024-04-08] MEDS ORDERED: Miconazole 2% Topical Powder BOTTLE TP SCH (21:00)
[2024-04-08] MEDS ORDERED: Temazepam 15 MG CAP PO SCH ×2 (21:00)
[2024-04-08 22:46] VITALS: BP 129/73
--- NOTE | 2024-04-09 00:22 | NUR ---
Pt calls for the abthroom. Pt is pleasent and coppertive with cares. Bed alarms on for safety and call light in reach of pt.
[2024-04-09 02:54] VITALS: BP 129/74
--- NOTE | 2024-04-09 06:33 | NUR ---
Pt has rested well through the night she calls whe assisstance is neeed. No further behaviors observed by staff. Pt remaines confused butis aware of pl;lucia and person only. Bed alarms on for safety and call ight in reach of pt.
[2024-04-09 07:14] LABS: TOTAL PROTEIN 6.1 g/dL (6.2-8.1)
[2024-04-09 07:21] LABS: ALBUMIN 3.2 g/dL (3.4-4.8)
[2024-04-09 07:22] LABS: CALCIUM 9.4 mg/dL (8.3-10.5)
[2024-04-09 07:24] LABS: BASO # 0.03 K/mm3 (0.02-0.10); EOS # 0.24 K/mm3 (0.04-0.40); HEMATOCRIT 31.4 % (37.0-47.0); HEMOGLOBIN 9.6 g/dL (12.5-16.0); MEAN CELL VOLUME 96 fl (78-100); MEAN CORPUSCULAR HEMOGLOBIN 29 pg (27-31); MEAN CORPUSCULAR HGB CONC 31 g/dL (33-37); MEAN PLATELET VOLUME 10.1 fl (7.4-10.4); MONO # 0.33 K/mm3 (0.20-0.80); NEU # 3.24 K/mm3 (1.40-6.50); PLATELET COUNT 148 K/mm3 (130-400); RED BLOOD COUNT 3.26 M/mm3 (4.10-5.30); RED CELL DISTRIBUTION WIDTH 14.2 % (11.5-14.5); WHITE BLOOD COUNT 6.1 K/mm3 (4.8-10.8)
[2024-04-09 07:32] LABS: TOTAL BILIRUBIN 0.1 mg/dL (0.2-1.2)
[2024-04-09] MEDS ORDERED: Carvedilol 6.25 MG TAB PO SCH (08:00)
[2024-04-09] MEDS ORDERED: Furosemide 20 MG TAB PO SCH (08:00)
[2024-04-09] MEDS ORDERED: Ferrous Sulfate 325 MG TAB PO SCH (08:00)
[2024-04-09 08:12] VITALS: BP 150/78
--- NOTE | 2024-04-09 08:30 | NUR ---
Patient alert and oriented x3. Pulses in all four extremities at +1. LCA in all four. Breathing regular and unlabored. Patient sitting in recliner, eating breakfast independently with feet up in recliner. Patient reports pain but cannot provide a number when asked. Patient swallowed morning medications well. Skin is dry and pale. Groin and under breast are red and dexenex applied. IV to left forearm patent and NS infusing at 75ml/hr. Oxygen via NC at 4L. Tele in place. Patient disposition is discontent and suspicious of staff and medications, even when explained. Education on medications and situation fully explained but patient is not accepting. However, did take medications for the day. She refuses a shower. States she will only use wipes to bath.
[2024-04-09] MEDS ORDERED: cefTRIAXone 1 G in Water For Injection,Sterile 10 ML IV SCH (09:00)
[2024-04-09 11:57] VITALS: BP 123/66
[2024-04-09] MEDS ORDERED: diphenhydrAMINE 25 MG CAP PO PRN (15:00)
[2024-04-09 15:03] VITALS: BP 130/73
--- NOTE | 2024-04-09 15:35 | NUR ---
VORB to discontinue prn order for tylenol per Dr. James because patient reports allergy to acetaminophen.
--- NOTE | 2024-04-09 17:28 | NUR ---
Patient awake for the day. Her daughter called earlier this morning and patient appeared somewhat upset after the conversation. Daughter was discussing her going to a [place] [facility]. Daughter called nurses station and this nurse talked with daughter. She asked about the results of the CT scan. Daughter notified that the CT of the head was negative for stroke however, precautions are in place to monitor her for 24 hours. Throughout the day patient refused to answer the pain scale. Pain-AD was completed. After lunch she worked on a crossword puzzle most of the day. She requested benadryl to help her sleep. An order placed, VORB from Dr. James, for Benadryl 25mg prn 2100. Acetaminophen DC'd as patient said that she was allergic to it, VORB per Dr. James. Patient ate well all day, 100% of all her meals. Uses the call light appropriately.
--- NOTE | 2024-04-09 18:52 | NUR ---
RECEIVED REPORT FROM REID PATINO
[2024-04-09 19:00] VITALS: BP 125/69
--- NOTE | 2024-04-09 20:43 | NUR ---
PATIENT ANGRY AND REFUSING VITALS TO BE TAKEN AND REFUSING TO WASH HANDS, FACE OR BRUSH TEETH. FIRST ATTEMPT TO PASS MEDS REFUSED. PATIENT STATES SHE WILL CALL WHEN SHE IS READY FOR HER MEDS. CALL LIGHT IN REACH. CHAIR ALARM ON
--- NOTE | 2024-04-09 22:24 | NUR ---
PATIENT AMBULATES TO AND FROM TOILET WITH STAFF ASSIST, WALKER AND GAIT BELT. AGREES TO TAKE MEDS AT THIS TIME. ABLE TO ADJUST OWN CLOTHING. CALL LIGHT IN REACH. BED ALARM ON
--- NOTE | 2024-04-10 04:07 | NUR ---
PATIENT RESTING QUIETLY IN BED. TELE SHOWS NSR. BREATHING UNLABORED ON O2 PER NC AT 4L. PATIENT HAS BEEN SLEEPING MOST OF SHIFT, HAS NOT REQUESTED BENEDRYL FOR SLEEP. CALL LIGHT IN REACH, BED ALARM ON
--- NOTE | 2024-04-10 07:00 | NUR ---
REPORT RECEIVED FROM REID CEJA
[2024-04-10 07:49] VITALS: BP 158/79
--- NOTE | 2024-04-10 08:50 | NUR ---
PATIENT UP TO BECKI AT THIS TIME WORKING ON WORD SEARCH PUZZLE. PATIENT IS ALERT TO SELF AND PLACE AT THIS TIME. PCT IN ROOM, PATIENT REFUSES ORAL CARE AND CADY HOSE AT THIS TIME. PATIENT STATES PAIN AT 7/10 BUT REFUSES ANALGESICS STATING "IF IT GETS WORSE I WILL LET YOU KNOW." PATIENT QUESTIONS IV ROCEPHIN STATES "I THOUGHT I DIDN'T HAVE TO HAVE ANY MORE SHOTS". THIS NURSE EDUCATED PATIENT ON IMPORTANCE OF ANTIBIOTICS TO TREAT INFECTIONS. PATIENT VERBALIZED UNDERSTANDING. IV UNABLE TO BE FLUSHED AT THIS TIME. THIS NURSE EXPLAINED TO PATIENT THE NEED TO START A NEW IV. PATIENT BECAME TEARFUL AND STATED "I AM TIRED OF BEING POKED AND PRODED." PATIENT REFUSED TO HAVE A NEW IV STARTED. THIS NURSE AGAIN EDUCATED ON THE IMPORTANCE OF ANTIBIOTCS TO TREAT PATIENTS UTI. PATIENT STATES "I KNOW, I WENT THROUGH ALL THIS WITH MY " PATIENT CONTIUES TO REFUSE. PROVIDER GLADIS DOSS AWARE.
--- NOTE | 2024-04-10 09:15 | NUR ---
NEW ANTIBIOTIC ORDERS RECIEVED FROM GLADIS DOSS
[2024-04-10] MEDS ORDERED: Nitrofurantoin (Mono/Macro) 100 MG CAPSULE PO SCH (09:21)
--- NOTE | 2024-04-10 09:50 | NUR ---
PATIENT REMIANS TEARFUL STATING "MY DAUGHTER IS MAD AT ME. I DONT WANT TO BE HERE. I JUST WANT TO GO HOME AND NOW I CAN'T EVEN DO THAT" THIS NURSE REASSURED PATIENT WE WILL TAKE THE BEST CARE OF HER DURING HER STAY. PATIENT CONTINUES TO BE TEARFUL. PATIENT REMAINS IN CHAIR AT THIS TIME, CHAIR ALARMED, CALL LIGHT WITHIN REACH
[2024-04-10 11:04] VITALS: BP 117/73
[2024-04-10 14:48] VITALS: BP 119/73
--- NOTE | 2024-04-10 17:14 | NUR ---
PATIENT REFUSES LOVENOX INJ STATES "I ALREADY TOLD YOU I DONT WANT TO BE POKED ANYMORE". THIS NURSE EDUCATED ON THE IMPORTANCE OF THIS MEDICATION, PATIENT CONTINUES TO REFUSE. PROVIDER GLADIS GALVAN AWARE
--- NOTE | 2024-04-10 18:45 | NUR ---
report given to juan r davis
[2024-04-10 19:00] VITALS: BP 122/69
--- NOTE | 2024-04-10 19:30 | NUR ---
Report received from Destiney BRADLEY. Patient sitting up in recliner, with legs elevated. A/O x4. Oxygen in place at 4L/NC, home routine. States pain 7-8/10. "my usual". Requests benadryl at HS. Reports she takes benadryl for pain and sleep. Denies problems with B&B. Assessment completed. Chair alarm vocational examiner light in reach.
--- NOTE | 2024-04-10 20:56 | NUR ---
U.C. shows no growth, advised Norma GRIFFITH.
[2024-04-10] MEDS ORDERED: Docusate Sodium 100 MG CAP PO SCH (21:00)
--- NOTE | 2024-04-10 21:21 | NUR ---
Patient refused SCD's.
[2024-04-10 23:30] VITALS: BP 118/57
--- NOTE | 2024-04-10 23:30 | NUR ---
Awakened for vital signs. Sleeping well. Neuro's and V/S WNL. Denies wants or needs at this time.
[2024-04-11 03:11] VITALS: BP 109/61
--- NOTE | 2024-04-11 05:40 | NUR ---
Calls for assist to BR. Brief dry. Passes large amount of flatus, voids 100 ML of clear yellow urine. No BM. Assisted back to bed. AM medication taken. Denies further wants or needs. Bed alarm on. Call light in reach.
--- NOTE | 2024-04-11 06:56 | NUR ---
Report to Edgar MATHEWS.
--- NOTE | 2024-04-11 07:54 | NUR ---
PT SWITCHING TO SWING BED STATUS
[2024-04-14] MEDS ORDERED: CYCLOBENZ5 MG PO (08:57)
[2024-04-14] MEDS ORDERED: BENADRYL PO (08:58)
[2024-04-14] MEDS ORDERED: RESTORIL30 M1 PO (08:58)
[2024-04-14] MEDS ORDERED: TEMAZEPAM PO (15:19)
== END 2024-04-11 08:16 | disposition swing bed (61) | DRG 948 ==
LOC: MED/SURG 17:05
DX: R41.82 Altered mental status, unspecified (principal); N39.0 Urinary tract infection, site not specified; I50.40 Unspecified combined systolic (congestive) and diastolic (congestive) heart failure; N17.9 Acute kidney failure, unspecified; N18.32 Chronic kidney disease, stage 3b; K56.41 Fecal impaction; E83.52 Hypercalcemia; L30.8 Other specified dermatitis; E11.9 Type 2 diabetes mellitus without complications; Z79.4 Long term (current) use of insulin; J44.9 Chronic obstructive pulmonary disease, unspecified; R53.81 Other malaise
CPT/HCPCS: J0696; J1650; J7030

== ENCOUNTER 2024-05-02 12:56 | Emergency (ER) | payer MEDICARE, OTHER ==
[~2024-05-02] VITALS: Ht 162.6 cm; Wt 70.5 kg
[~2024-05-02 12:56] MED LIST changes: +CYCLOBENZ5 MG PO; +TEMAZEPAM PO
[2024-05-02] MEDS ORDERED: Albuterol/Ipratropium 3 MG-0.5 MG/3 ML Neb Soln IH ONE (13:30)
[2024-05-02 13:44] LABS: BASO # 0.02 K/mm3 (0.02-0.10); EOS # 0.14 K/mm3 (0.04-0.40); HEMOGLOBIN 10.2 g/dL (12.5-16.0); LYMPH# 0.91 K/mm3 (1.50-4.00); MEAN CELL VOLUME 95 fl (78-100); MEAN CORPUSCULAR HEMOGLOBIN 29 pg (27-31); MEAN CORPUSCULAR HGB CONC 31 g/dL (33-37); MEAN PLATELET VOLUME 9.6 fl (7.4-10.4); MONO # 0.47 K/mm3 (0.20-0.80); NEU # 5.54 K/mm3 (1.40-6.50); PLATELET COUNT 100 K/mm3 (130-400); RED BLOOD COUNT 3.48 M/mm3 (4.10-5.30); RED CELL DISTRIBUTION WIDTH 14.4 % (11.5-14.5); WHITE BLOOD COUNT 7.1 K/mm3 (4.8-10.8)
[2024-05-02 13:50] LABS: ALBUMIN 3.6 g/dL (3.4-4.8)
[2024-05-02 13:51] LABS: CALCIUM 9.6 mg/dL (8.3-10.5)
[2024-05-02 13:53] LABS: TOTAL PROTEIN 6.8 g/dL (6.2-8.1)
[2024-05-02 13:54] LABS: TOTAL BILIRUBIN 0.3 mg/dL (0.2-1.2)
[2024-05-02] MEDS ORDERED: MUCINEX 60600 MG/TA1 PO (14:42)
[2024-05-02] MEDS ORDERED: NEB (14:42)
[2024-05-02] MEDS ORDERED: ALBUTEROL2.5 MG/3 M IH (14:42)
[2024-05-02] MEDS ORDERED: DOXYCYCLINE HY100 M5 PO (14:42)
[2024-05-02] MEDS ORDERED: Doxycycline Monohydrate 100 MG CAP PO ONE (14:45)
[2024-05-02 15:14] VITALS: BP 123/55
== END 2024-05-02 15:27 | disposition home or self-care (01) ==
LOC: ED 12:56
PROVIDERS: Physician Assistant
DX: J20.9 Acute bronchitis, unspecified (principal); J96.10 Chronic respiratory failure, unspecified whether with hypoxia or hypercapnia; J06.9 Acute upper respiratory infection, unspecified; J90 Pleural effusion, not elsewhere classified; Z88.2 Allergy status to sulfonamides; Z91.040 Latex allergy status

== ENCOUNTER → 2024-05-06 | Outpatient (CLI) | payer MEDICARE, OTHER ==
[~2024-05-06] MED LIST changes: +ALBUTEROL2.5 MG/3 M IH; +DOXYCYCLINE HY100 M5 PO; +MUCINEX 60600 MG/TA1 PO; +NEB
== END ==
LOC: LAB 13:40
DX: I51.7 Cardiomegaly (principal); J40 Bronchitis, not specified as acute or chronic

== ENCOUNTER → 2024-05-27 | Outpatient (CLI) | payer MEDICARE, OTHER | LOC: RAD 10:43 | DX: M79.601 Pain in right arm (principal); W19.XXXA Unspecified fall, initial encounter ==